=== PATIENT | male | born 1975 | race African-American/Black ===

== ENCOUNTER → 2017-01-30 | Outpatient (CLI) | payer BC ==
--- NOTE | ~2017-01-30 | PUL ---
PATIENT'S NAME: REGAN GODFREY [facility] AGE: 41 Y [address] ROOM: [place] [address] LOCATION: [facility] ADMIT DATE: 01/30/2017 Pulmonary DISCHARGE DATE: FAMILY PHYSICIAN: JARRETT ASHER PENSION EXAMINER ATTENDING PHYSICIAN: JARRETT ASHER NAME OF PROCEDURE: Home sleep study DATE OF PROCEDURE: 01/30/2017 TECH: KATIE TorresGT SUMMARY: Patient underwent home sleep testing using a type III device and was studied for 7 hours 57 minutes. In that time there were 58 apneas and 75 hypopneas for an apnea/hypopnea index moderately elevated at 16.7 events per hour. Oxygen saturations ranged from 84-93% and heart rate ranged from 35 to 84 beats per minute. IMPRESSION: Moderate obstructive sleep apnea. PLAN: Patient will receive results from the ordering provider. MD MARY JANG/ /[id number] dtt: 02/07/17 0948 Bryanna David E. dtd: 02/03/17 1547
== END | disposition disaster alternative care site (69) ==
LOC: GSLP 01-21 09:14
DX: G47.33 Obstructive sleep apnea (adult) (pediatric) (principal); G47.10 Hypersomnia, unspecified; G47.36 Sleep related hypoventilation in conditions classified elsewhere
CPT/HCPCS: G0399